=== PATIENT | male | born 1990 | race Caucasian/White ===

== ENCOUNTER 2022-08-19 07:11 | Emergency (ER) | payer SELFPAY ==
[~2022-08-19] VITALS: Ht 182.8 cm; Wt 97.5 kg
--- NOTE | 2022-08-19 07:33 | ED GU-Male ---
General Chief Complaint: - Reproductive Stated Complaint: SWOLLEN TESTICLE Source: patient Exam Limitations: no limitations History of Present Illness Date Seen by Provider: Aug 19, 2022 Time Seen by Provider: 07:17 Initial Comments Here with report of approximately 1 week intermittent left testicular swelling and pain. 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 He states it does come and go. Denies dysuria or diarrhea. Denies blood in his urine or stool. Denies problems with sexual activity. Denies fever or chills. Has had a mild cough for the last week and a half but not significant and otherwise does not feel ill. He is not vaccinated for COVID or flu. Timing/Duration: week, changing over time, intermittent Severity/Quality: mild, moderate, aching, other (Swelling) Location: scrotal (Left) Radiation: none Activities at Onset: none Sexual [place] History: less than 2 months ago, single partner Modifying Factors: Improves With Resting Associated Symptoms: No abdominal pain, No dysuria, No fever/chills, No lower back pain, No nausea/vomiting; swelling Allergies and Home Medications Allergies Coded Allergies: doxycycline (Verified Allergy, Unknown, 08/19/22) Patient Home Medication List Home Medication List Reviewed: Yes Review of Systems Review of Systems Constitutional: see HPI; No chills, No fever EENTM: No nose congestion, No throat pain Respiratory: cough (Mild); No short of breath Cardiovascular: No edema, No palpitations Gastrointestinal: No abdominal pain, No nausea, No vomiting Genitourinary: see HPI Musculoskeletal: see HPI; No muscle pain, No muscle weakness All Other Systemes Reviewed Negative Unless Noted: Yes Past Etbwrys-Tuvgft-Kwbemf Hx Patient Social History Tobacco Use?: Yes Tobacco type used: Cigarettes Use of E-Cig and/or Vaping dev: No Substance use?: No Alcohol Use?: No Pt feels they are or have been: No Past Medical History Surgeries: No Respiratory: No Cardiac: No Neurological: No Gastrointestinal: No Musculoskeletal: No Endocrine: No HEENT: No Family Medical History Reviewed Nursing Family Hx No Pertinent Family Hx Physical Exam Vital Signs Vital Signs - First Documented 08/19/22 07:17 Pulse 113 Resp 20 B/P (MAP) 153/86 (108) Pulse Ox 98 O2 Delivery Room Air Capillary Refill : Height, Weight, BMI Height: '" Weight: lbs. oz. kg; BMI Method: General Appearance: WD/WN, no apparent distress HEENT: PERRL/EOMI, pharynx normal Neck: full range of motion, supple Cardiovascular: regular rate, rhythm, no murmur Respiratory: lungs clear, normal breath sounds Gastrointestinal: non tender, soft Male: No inguinal tenderness; other (Left testicle slightly swollen over right. Cremasteric reflex intact bilateral. No obvious scrotal mass on left or right. No obvious significant inguinal hernia noted on right or left. No penile lesions or discharge.) Back: normal inspection, no CVA tenderness, no vertebral tenderness Extremities: normal range of motion, non-tender, no pedal edema Neurologic/Psychiatric: alert, oriented x 3 Progress/Results/Core Measures Suspected Sepsis SIRS Temperature: Pulse: Respiratory Rate: Blood Pressure / Mean: Results/Orders Lab Results Laboratory Tests Test 08/19/22 08:06 Range/Units Urine Color YELLOW Urine Clarity CLEAR Urine pH 7.5 5-9 Urine Specific [place] 1.010 L 1.016-1.022 Urine Protein NEGATIVE NEGATIVE Urine Glucose (UA) NEGATIVE NEGATIVE Urine Ketones NEGATIVE NEGATIVE Urine Nitrite NEGATIVE NEGATIVE Urine Bilirubin NEGATIVE NEGATIVE Urine Urobilinogen 0.2 < = 1.0 MG/DL Urine Leukocyte Esterase 2+ H NEGATIVE Urine RBC (Auto) NEGATIVE NEGATIVE Urine RBC 0-2 /HPF Urine WBC 10-25 H /HPF Urine Squamous Epithelial Cells 0-2 /HPF Urine Crystals NONE /LPF Urine Bacteria FEW H /HPF Urine Casts NONE /LPF Urine Mucus NEGATIVE /LPF Urine Culture Indicated YES My Orders Orders - KEVIN LAO MD Us Scrotum (Testicle) [id number] (08/19/22 07:27) Ua Culture If Indicated (08/19/22 07:27) Urine Culture (08/19/22 08:06) Ceftriaxone (Rocephin) (08/19/22 09:00) Lidocaine 1% Inj 20 Ml (Xylocaine 1% Inj (08/19/22 09:00) Vital Signs/I&O 08/19/22 07:17 Pulse 113 Resp 20 B/P (MAP) 153/86 (108) Pulse Ox 98 O2 Delivery Room Air Capillary Refill : Progress Note : Progress Note Seen and evaluated. Ultrasound scrotum ordered to rule out torsion, mass, hernia or vascular abnormality. We will check UA as well. Monitor patient. He declines pain medicine and nausea medicine. 0855: Reviewed ultrasound results and note epididymitis/orchitis. UA also is indicative urinary tract infection. We will initiate ceftriaxone 500 mg IM and continue with outpatient prescription for levofloxacin 500 mg daily for 10 days. We would prefer doxycycline but he has doxycycline allergy. All of this was discussed with the patient. Discharged home with return precaution. Patient verbalized understanding in structions and agreement with plan. Diagnostic Imaging Diagonstic Imaging: Ultrasound Plain Films/CT/US/NM/MRI: other Comments NAME: GREGG GUAMAN [facility] REC#: [id number] PT STATUS: REG ER : 1990 PHYSICIAN: KEVIN LAO MD ADMIT DATE: 08/19/22/ER Signed Date of Exam:08/19/22 US SCROTUM (Testicle) [id number] PROCEDURE: US Scrotum w/ Duplex TECHNIQUE: Multiple realtime canales images were obtained of the scrotum in various projections bilaterally. Color Doppler images were also obtained. INDICATION: Left-sided testicular swelling. COMPARISON: None. FINDINGS: The testicles are normal in size, shape and echogenicity. The right testis measures 5.1 x 2.6 x 3.8 cm. The left testis measures 5.1 x 2.8 x 3.5 cm. There is slightly asymmetrically increased color Doppler flow within the left testicle relative to the right. No focal testicular mass is seen on either side. Small epididymal head cyst is seen in the left measuring 0.3 cm. There is increased color Doppler flow within the left epididymis. The right epididymis is unremarkable. IMPRESSION: 1. Findings suggestive of left-sided epididymitis/orchitis. No evidence of abscess. Dictated by: Dictated on workstation # [id number] Dict: 08/19/2232 Trans: 08/19/2256 [facility] [id number] Interpreted by: TAMRA ATKINSON DO Electronically signed by: TAMRA ATKINSON DO 08/19/22 0856 Departure Impression Primary Impression: Urinary tract infection Qualified Codes: N30.00 - Acute cystitis without hematuria Additional Impression: Epididymitis, left Disposition: 01 HOME, SELF-CARE Condition: Stable Departure-Patient Inst. Decision time for Depature: 08:59 Referrals: MAHIN JOHN,LOCAL PHYSICIAN (PCP) Primary Care Physician [facility] [place] Patient Instructions: Epididymitis (DC), Urinary Tract Infection, Adult (DC) Add. Discharge Instructions: All discharge instructions reviewed with patient and/or family. Voiced understanding. You may take ibuprofen 800 mg every 8 hours as needed for pain. You may also take Tylenol/acetaminophen 1000 mg every 8 hours as needed for pain. Drink plenty of fluids. You should follow-up with provider listed or of your choosing for recheck and further evaluation. Return for worse pain, fever, vomiting, weakness, breathing problems, testicular swelling or other concerns as needed. Scripts Levofloxacin (Levofloxacin) 500 Mg Tablet 500 MG PO DAILY for 10 Days, #10 TAB 0 Refills Prov: KEVIN LAO MD 08/19/22 KEVIN LAO MD Aug 19, 2022 07:33
[2022-08-19 08:16] LABS: BILIRUBIN,URINE NEGATIVE (NEGATIVE); CLARITY,URINE CLEAR; COLOR,URINE YELLOW; GLUCOSE, URINE (UA) NEGATIVE (NEGATIVE); KETONES,URINE NEGATIVE (NEGATIVE); LEUKOCYTE ESTERASE ,URINE 2+ (NEGATIVE); NITRITE,URINE NEGATIVE (NEGATIVE); PH,URINE 7.5 (5-9); PROTEIN,URINE NEGATIVE (NEGATIVE)
[2022-08-19 08:37] LABS: BACTERIA,URINE FEW /HPF; RBC,URINE 0-2 /HPF; SQUAMOUS EPITHELIAL CELL,UR 0-2 /HPF
--- NOTE | 2022-08-19 08:53 | Diagnostic Imaging Report ---
PROCEDURE: US Scrotum w/ Duplex TECHNIQUE: Multiple realtime canales images were obtained of the scrotum in various projections bilaterally. Color Doppler images were also obtained. INDICATION: Left-sided testicular swelling. COMPARISON: None. FINDINGS: The testicles are normal in size, shape and echogenicity. The right testis measures 5.1 x 2.6 x 3.8 cm. The left testis measures 5.1 x 2.8 x 3.5 cm. There is slightly asymmetrically increased color Doppler flow within the left testicle relative to the right. No focal testicular mass is seen on either side. Small epididymal head cyst is seen in the left measuring 0.3 cm. There is increased color Doppler flow within the left epididymis. The right epididymis is unremarkable. IMPRESSION: 1. Findings suggestive of left-sided epididymitis/orchitis. No evidence of abscess. Dictated by: Dictated on workstation # [id number]
[2022-08-19] MEDS ORDERED: LIDOCAINE 1% INJ 20 ML VIAL INJ ONE (09:00)
[2022-08-19] MEDS ORDERED: cefTRIAXone 500 MG/5 ML ML IM ONE (09:00)
[2022-08-19] MEDS ORDERED: LEVO-55 PO (09:01)
[2022-08-19 09:29] VITALS: BP 136/89
== END 2022-08-19 09:29 | disposition home or self-care (01) ==
LOC: ER 07:15
DX: N39.0 Urinary tract infection, site not specified (principal); N45.1 Epididymitis; F17.210 Nicotine dependence, cigarettes, uncomplicated; Z88.1 Allergy status to other antibiotic agents
CPT/HCPCS: 76870; 81000; 87088